=== PATIENT | male | born 1990 | race Caucasian/White ===

== ENCOUNTER 2023-12-03 21:36 | Emergency (ER) | payer OTHER ==
[~2023-12-03] VITALS: Ht 180.3 cm; Wt 82.0 kg
[2023-12-03 22:15] LABS: BASO% 0.4 % (0-3); EOS% 5.5 % (0-8); HEMATOCRIT 38.8 % (39.0-50.0); HEMOGLOBIN 12.9 g/dl (14.0-18.0); IMMATURE GRANULOCYTES 0.1 % (0.0-5.0); LYMPH% 29.5 % (15-41); MEAN CELL VOLUME 86.8 fL CALC (80.0-100.0); MEAN CORPUSCULAR HGB 28.9 pG CALC (26.0-32.0); MEAN CORPUSCULAR HGB CONC 33.2 g/dL CAL (32.0-36.0); MONO% 6.3 % (2-13); NEUT# 6.6 thou/uL (1.82-7.42); NEUT% 58.2 % (42-76); RED BLOOD COUNT 4.47 mill/uL (4.70-6.10); RED CELL DISTRI WIDTH 12.9 % (11.5-15.5)
[2023-12-03] MEDS ORDERED: hydrALAZINE HCL 20 MG/ML VIAL(1 ML) IV ONE (22:25)
[2023-12-03 22:30] LABS: INTERNATIONAL NORMALIZED RATIO 1.1 RATIO (0.7-1.3); PROTHROMBIN TIME 10.1 SECONDS (9.0-12.5)
[2023-12-03 22:32] LABS: ALBUMIN 4.2 g/dL (3.2-5.0); ALKALINE PHOSPHATASE 79 u/l (38-126); ANION GAP 11 (6-22 (CALC)); BILIRUBIN, TOTAL 0.4 mg/dL (0.2-1.3); BUN 14 mg/dL (9-20); BUN/CREATININE RATIO 15 (12-20 (CALC)); CARBON DIOXIDE 23 mmol/l (22-30); CHLORIDE 109 mmol/l (95-108); CPK 333 u/l (55-170); ETHYL ALCOHOL 0 mg/dl (0-30); GFR FOR AFR.AMER. > 60 ML/MIN (>=60 (CALC)); GFR OTHER RACES > 60 ML/MIN (>=60 (CALC)); POTASSIUM 3.4 mmol/l (3.5-5.1); SGOT/AST 29 u/l (17-59); SODIUM 139 mmol/l (137-146); TOTAL PROTEIN 7.1 g/dL (6.3-8.2)
[2023-12-04] MEDS ORDERED: SODIUM CHLORIDE 0.9% 1,000 ML IV ONE (02:05)
[2023-12-04] MEDS ORDERED: POTASSIUM CHLORIDE 20 MEQ/TAB PO ONE (04:30)
[2023-12-04] MEDS ORDERED: MAGNESIUM OXIDE 400 MG/TAB PO ONE (04:30)
[2023-12-04 04:41] LABS: URINE BILIRUBIN - DIPSTICK Negative (NEGATIVE); URINE BLOOD DIPSTICK Trace-intact (NEGATIVE); URINE GLUCOSE - DIPSTICK Negative (NEGATIVE); URINE KETONE Trace mg/dL (NEGATIVE); URINE LEUK ESTERASE Negative (NEGATIVE); URINE NITRITE - DIPSTICK Negative (Negative); URINE PH 5.5 (4.5-8.0); URINE PROTEIN - DIPSTICK Negative (NEG-TRACE); URINE UROBILINOGEN - DIPSTICK 0.2 E.U./dL (0.2)
[2023-12-04 04:44] LABS: URINE COLOR Yellow
[2023-12-04 05:41] VITALS: BP 128/75
== END 2023-12-04 06:00 | DRG 123 ==
LOC: ED 21:36
PROVIDERS: Internal Medicine
DX: H57.00 Unspecified anomaly of pupillary function (principal); F19.10 Other psychoactive substance abuse, uncomplicated; E87.6 Hypokalemia